=== PATIENT | female | born 1990 | race Hispanic/Latino ===

== ENCOUNTER 2025-08-22 01:05 | Emergency (ER) | payer SELFPAY ==
[~2025-08-22] VITALS: Ht 157.5 cm; Wt 104.3 kg
[2025-08-22 01:05] VITALS: TEMP 98.3
[2025-08-22] MEDS: ONDANSETRON HCL INJ 2MG/ML 2ML 2 MG/ML VIAL IV STA (01:59)
[2025-08-22] MEDS: SODIUM CHLORIDE 0.9% 1000ML 1,000 ML IV STA (01:59)
[2025-08-22 02:14] LABS: BASOPHILS % 0.2 % (0.0-1.0); EOSINOPHILS % 0.7 % (0.0-6.0); LYMPHOCYTES % 17.0 % (18.0-39.1); MONOCYTES % 4.4 % (4.4-11.3); NEUTROPHILS % 77.3 % (38.7-80.0); RED CELL DISTRIBUTION WIDTH 13.2 % (11.7-14.4)
[2025-08-22 02:28] LABS: EST GLOMERULAR FILTRATION RATE 82.0 ML/MIN (>=60)
[2025-08-22] MEDS: KETOROLAC TROMETHAMINE 30 MG/ML VIAL IV STA (02:33)
[2025-08-22 03:30] VITALS: PULSE 56; RESP 16
[2025-08-22] MEDS ORDERED: KETOROLAC TROME10 MG PO (03:30)
[2025-08-22] MEDS ORDERED: ONDANSETRON ODT4 MG PO (03:30)
[2025-08-22 04:04] VITALS: BP 123/64; O2SAT 100
== END 2025-08-22 03:40 | disposition home or self-care (01) ==
LOC: ER 01:20
DX: R11.2 Nausea with vomiting, unspecified (principal); R10.9 Unspecified abdominal pain; K80.20 Calculus of gallbladder without cholecystitis without obstruction
CPT/HCPCS: 36415; 74176; 80053; 83690; 84702; 85025; 99284; J1885; J2405; J7030